=== PATIENT | female | born 1995 | race Caucasian/White ===

== ENCOUNTER → 2017-06-08 | Outpatient (REF) | payer OTHER | LOC: M LAB REF 19:50 | PROVIDERS: ATTEND Physician Assistant | DX: J02.9 Acute pharyngitis, unspecified (principal) ==

== ENCOUNTER → 2017-11-04 | Outpatient (CLI) | payer OTHER ==
[2017-11-05 10:39] LABS: HEPATITIS B SURFACE ANTIBODY NEGATIVE (POSITIVE)
== END ==
LOC: M WUC 13:37
DX: Z02.1 Encounter for pre-employment examination (principal)
CPT/HCPCS: 86706

== ENCOUNTER → 2017-12-15 | Outpatient (CLI) | payer OTHER, SELFPAY ==
[2017-12-19 13:17] LABS: HEPATITIS B SURFACE ANTIBODY POSITIVE (POSITIVE)
== END ==
LOC: M WUC 17:36
DX: Z02.1 Encounter for pre-employment examination (principal)
CPT/HCPCS: 86706

== ENCOUNTER → 2018-12-01 | Outpatient (REF) | payer OTHER | LOC: M LAB LCGH 14:50 | PROVIDERS: ATTEND Nurse Practitioner Adult Health | DX: Z12.4 Encounter for screening for malignant neoplasm of cervix (principal) ==

== ENCOUNTER 2019-04-21 17:34 | Emergency (ER) | payer OTHER ==
[~2019-04-21] VITALS: Ht 167.6 cm; Wt 125.0 kg
[2019-04-21] MEDS ORDERED: HM I1TAB PO (17:58)
[2019-04-21 18:27] LABS: BASO % 0.1 % (0.0-1.0); EOS % 0.3 % (0.0-3.0); HEMATOCRIT 39.8 % (36.0-47.0); HEMOGLOBIN 13.6 g/dl (12.0-15.5); LYMPH # 1.1 10^3/uL (1.5-6.5); LYMPH % 15.5 % (24.0-44.0); MEAN CORPUSCULAR HEMOGLOBIN 30.3 pg (27.0-33.0); MEAN CORPUSCULAR HGB CONC 34.2 g/dl (32.0-36.5); MEAN CORPUSCULAR VOLUME 88.6 fl (80.0-96.0); MONO # 0.6 10^3/uL (0.0-0.8); MONO % 7.9 % (0.0-5.0); NEUTROPHILS # 5.4 10^3/uL (1.8-7.7); NEUTROPHILS % 75.8 % (36.0-66.0); PLATELET COUNT, AUTOMATED 152 10^3/uL (150-450); RED BLOOD COUNT 4.49 10^6/uL (4.00-5.40); WHITE BLOOD COUNT 7.1 10^3/uL (4.0-10.0)
[2019-04-21] MEDS ORDERED: NS 1,000 ML IV ONE (18:30)
[2019-04-21 18:35] LABS: INR 1.07; PROTHROMBIN TIME 13.6 SECONDS (11.8-14.0)
[2019-04-21 18:36] LABS: PARTIAL THROMBOPLASTIN TIME 25.4 SECONDS (25.0-38.4)
[2019-04-21 18:38] LABS: D-DIMER QUANT 803.52 ng/ml (<500)
[2019-04-21 18:43] LABS: BLOOD UREA NITROGEN 9 MG/DL (7-18); CARBON DIOXIDE LEVEL 21 MEQ/L (21-32); CHLORIDE LEVEL 109 MEQ/L (98-107); CREATININE FOR GFR 0.79 MG/DL (0.55-1.30); ETHYL ALCOHOL (ETHANOL) 0.003 % (0.000-0.010); FREE T4 1.08 NG/DL (0.76-1.46); GLOMERULAR FILTRATION RATE > 60.0 (>60); GLUCOSE, FASTING 98 MG/DL (70-100); MAGNESIUM LEVEL 1.8 MG/DL (1.8-2.4); POTASSIUM SERUM 3.7 MEQ/L (3.5-5.1); SODIUM LEVEL 138 MEQ/L (136-145); THYROID STIMULATING HORMONE 0.514 uIU/ML (0.358-3.740)
--- NOTE | 2019-04-21 19:40 | REP ---
Portable chest, 07:13 p.m., single AP view with the the patient upright: There are no comparisons. The lung sales are clear. The cardiac size is normal. The chivo, mediastinum, and skeletal structures are unremarkable. Impression: Negative portable chest. Electronically Signed by Callum Castro MD 04/21/2019 07:32 P
[2019-04-21] MEDS ORDERED: ISOVUE-370 76% 100ML VIAL (Q9967) As Ordered ONE (19:44)
[2019-04-21 20:07] LABS: AMPHETAMINES LEVEL URINE NEGATIVE (NEGATIVE); BARBITURATES URINE NEGATIVE (NEGATIVE); BENZODIAZEPINES URINE NEGATIVE (NEGATIVE); CANNABINOIDS URINE NEGATIVE (NEGATIVE); COCAINE METABOLITE URINE NEGATIVE (NEGATIVE); METHADONE URINE NEGATIVE (NEGATIVE); OPIATES URINE NEGATIVE (NEGATIVE); PHENCYCLIDINE URINE NEGATIVE (NEGATIVE)
--- NOTE | 2019-04-21 20:58 | REPVR ---
EXAM: CT Angiography Chest With Contrast EXAM DATE/TIME: 04/21/2019 7:47 PM CLINICAL HISTORY: 24 years old, female; Abnormal findings; Abnormal diagnostic tests; Elevated d-dimer; Additional info: Syncope, elevated ddimer TECHNIQUE: Imaging protocol: Axial computed tomographic angiography images of the chest with intravenous contrast using CT angiography protocol. 3D rendering: MIP reconstructed images were created and reviewed. Radiation optimization: All CT scans at this facility use at least one of these dose optimization techniques: automated exposure control; mA and/or kV adjustment per patient size (includes targeted exams where dose is matched to clinical indication); or iterative reconstruction. Contrast material: ISOVUE 370; Contrast volume: 100 ml; Contrast route: IV; COMPARISON: CR PORTABLE CHEST X-RAY 04/21/2019 7:10 PM FINDINGS: Pulmonary arteries: The main pulmonary artery measures 28 mm. No central pulmonary embolism is identified. Aorta: Motion artifact precludes any measurement of the ascending thoracic aorta. Lungs: Minimal dependent atelectasis with some motion artifact in the lungs. Pleural space: Unremarkable. No pneumothorax. No pleural effusion. Heart: Unremarkable. No cardiomegaly. No pericardial effusion. Spleen: Large cyst in the left upper quadrant of the abdomen measuring 10.7 cm with a Hounsfield measurement of 16. Lymph nodes: Unremarkable. No enlarged lymph nodes. Bones/joints: Unremarkable. No acute fracture. Soft tissues: Unremarkable. IMPRESSION: 1. Large left upper quadrant abdominal cyst measuring 10.7 cm. 2. Otherwise negative CTA chest. No central pulmonary embolism is identified. Electronically signed by: Antonio Morris On 04/21/2019 20:58:01 PM
--- NOTE | 2019-04-21 21:02 | REPVR ---
EXAM: CT Abdomen and Pelvis With Contrast EXAM DATE/TIME: 04/21/2019 8:01 PM CLINICAL HISTORY: 24 years old, female; Abnormal findings; Abnormal radiologic finding of the abdomen; Radiologic exam and body structure: CT; Additional info: Splenic cyst TECHNIQUE: Imaging protocol: Computed tomography images of the abdomen and pelvis with intravenous contrast. Radiation optimization: All CT scans at this facility use at least one of these dose optimization techniques: automated exposure control; mA and/or kV adjustment per patient size (includes targeted exams where dose is matched to clinical indication); or iterative reconstruction. Contrast material: ISOVUE 370; Contrast volume: 100 ml; Contrast route: IV; COMPARISON: No relevant prior studies available. FINDINGS: Liver: Normal. No mass. Gallbladder and bile ducts: Normal. No calcified stones. No ductal dilation. Pancreas: Normal. No ductal dilation. Spleen: Large cyst in the splenic hilum measuring 11.1 x 10.5 x 13.1 cm. Adrenals: Normal. No mass. Kidneys and ureters: Normal. No hydronephrosis. Stomach and bowel: Normal. No obstruction. No mucosal thickening. Appendix: A normal appendix is seen. Intraperitoneal space: Normal. No free air. No significant fluid collection. Vasculature: Normal. No abdominal aortic aneurysm. Lymph nodes: Normal. No enlarged lymph nodes. Bladder: Unremarkable as visualized. Reproductive: Unremarkable as visualized. Bones/joints: No acute fracture. No dislocation. Soft tissues: Unremarkable. IMPRESSION: 1. Large cyst in the splenic hilum measuring 11.1 x 10.5 x 13.1 cm[address] 2[address] Otherwise negative CT abdomen/pelvis. Electronically signed by: Antonio Morris On 04/21/2019 21:02:22 PM
[2019-04-21 21:42] VITALS: BP 110/59
--- NOTE | 2019-04-22 10:57 | ED PDOC ---
Post-Departure Follow-Up dr naik and dr shaw faxed formal report of ct abd/p for fu Chuck Hicks MD Apr 22, 2019 10:57
--- NOTE | 2019-04-22 13:38 | ECGEPIP ---
[facility] - ED Test Date: 2019-04-21 Pat Name: AILYN MILLER Department: Room: - Gender: Female [employer]: BELKIS : 1995 Requested By: EZEQUIEL Morgan Order Number: [id number] Reading MD: Christo Sahu Measurements Intervals [place] Rate: 81 P: 42 FL: 169 QRS: 74 QRSD: 97 T: 22 QT: 370 QTc: 431 Interpretive Statements SINUS RHYTHM BASELINE ARTIFACT AFFECTS INTERPRETATION NO PRIORS FOR COMPARISON Electronically Signed on 04-22-2019 13:37:42 EDT by Christo Sahu
== END 2019-04-21 21:56 | disposition home or self-care (01) ==
LOC: EDBD 17:34 → EDSEX 17:34 → M ED 17:34
DX: R55 Syncope and collapse (principal); D73.4 Cyst of spleen
CPT/HCPCS: 36415; 71045; 71275; 74177; 80048; 80307; 81001; 83735; 84439; 84443; 84702; 85025; 85379; 85610; 85730; 93005; 93041; 94760; 99285; G0480; Q9967